=== PATIENT | male | born 1975 | race Caucasian/White ===

== ENCOUNTER 2021-09-27 10:13 | Day surgery (SDC) | payer MEDICARE, MEDICAID ==
[~2021-09-27] VITALS: Ht 170.2 cm; Wt 150.0 kg
[~2021-09-27 10:13] MED LIST: SODIUM CHLORIDE 0.9% 1,000 ML ONE
[2021-09-27] MEDS ORDERED: PROPOFOL 1% 20 ML VIAL IVP ONE (10:14)
[2021-09-27] MEDS ORDERED: LIDOCAINE/PF 2% 5 ML SYRINGE IVP ONE (10:14)
[2021-09-27] MEDS ORDERED: ETHYL ALCOHOL 62% ANTISEPTIC NASAL INHALANT 0.6 ML AMPUL NASAL ONE (10:15)
[2021-09-27 11:04] LABS: COVID AG,FIA SOURCE NASOPHARYNGEAL
[2021-09-27] MEDS ORDERED: SODIUM CHLORIDE 0.9% 1,000 ML IV ONE (12:30)
[2021-09-27] MEDS ORDERED: PREG100C55 PO (13:29)
[2021-09-27] MEDS ORDERED: MULT-1366 PO (13:29)
[2021-09-27] MEDS ORDERED: VERA120C3 PO (13:29)
[2021-09-27] MEDS ORDERED: LURA120T PO (13:29)
[2021-09-27] MEDS ORDERED: ROSU10TA72 PO (13:29)
== END 2021-09-27 13:55 | disposition home or self-care (01) ==
LOC: SURGERY 10:13
PROVIDERS: ATTEND Internal Medicine Gastroenterology
DX: Z12.11 Encounter for screening for malignant neoplasm of colon (principal); K63.5 Polyp of colon; K64.8 Other hemorrhoids; E66.9 Obesity, unspecified; F17.210 Nicotine dependence, cigarettes, uncomplicated; Z79.899 Other long term (current) drug therapy; Z98.890 Other specified postprocedural states
CPT/HCPCS: 45380; 87426; C1769; C9803; J2704; J3490; J7030; 88305